=== PATIENT | female | born 1970 | race Caucasian/White ===

== ENCOUNTER 2024-03-15 09:22 | Emergency (ER) | payer BC ==
[~2024-03-15] VITALS: Ht 165.1 cm; Wt 63.0 kg
[2024-03-15] VITALS (13 sets, daily range): BP systolic 120–147; BP diastolic 65–88
[~2024-03-15 09:22] MED LIST: ANUCORT-HC25 MG RE; LORTAB 5/3255 MG PO; MIRALAX3350 NF PO; NO; PREVACID30 M2 PO
[2024-03-15] MEDS ORDERED: SODIUM CHLORIDE 0.9% 1,000 ML IV ONE ×2 (09:35→12:55)
[2024-03-15] MEDS ORDERED: ONDANSETRON HCl 4 MG/2 ML SDV IV ONE (09:35)
[2024-03-15] MEDS ORDERED: ACETAMINOPHEN 500 MG TAB PO ONE (09:40)
[2024-03-15 09:56] LABS: BASO% 0.1 % (0-3); HEMATOCRIT 45.1 % (37.0-47.0); HEMOGLOBIN 14.7 g/dl (12.0-16.0); IMMATURE GRANULOCYTES 0.1 % (0.0-5.0); LYMPH% 4.9 % (15-41); MEAN CELL VOLUME 95.8 fL CALC (80.0-100.0); MEAN CORPUSCULAR HGB 31.2 pG CALC (26.0-32.0); MEAN CORPUSCULAR HGB CONC 32.6 g/dL CAL (32.0-36.0); NEUT# 7.44 thou/uL (2.00-7.15); NEUT% 90.9 % (42-76); RED BLOOD COUNT 4.71 mill/uL (4.20-5.60); RED CELL DISTRI WIDTH 12.7 % (11.5-15.5)
[2024-03-15 10:08] LABS: ALBUMIN 4.6 g/dL (3.2-5.0); BILIRUBIN, TOTAL 0.7 mg/dL (0.02-1.3); CREATININE 0.9 mg/dL (0.5-1.0); TOTAL PROTEIN 7.6 g/dL (6.3-8.2)
[2024-03-15 12:12] LABS: URINE BILIRUBIN - DIPSTICK Negative (NEGATIVE); URINE BLOOD DIPSTICK Small (NEGATIVE); URINE GLUCOSE - DIPSTICK Negative (NEGATIVE); URINE KETONE 15 mg/dL (NEGATIVE); URINE LEUK ESTERASE Negative (NEGATIVE); URINE NITRITE - DIPSTICK Negative (Negative); URINE PH 5.5 (4.5-8.0); URINE PROTEIN - DIPSTICK 100 mg/dL (NEG-TRACE); URINE UROBILINOGEN - DIPSTICK 0.2 E.U./dL (0.2)
[2024-03-15 12:17] LABS: URINE COLOR Yellow
[2024-03-15 12:18] LABS: URINE EPITHELIAL CELLS MODERATE EPI/hpf (0-FEW)
[2024-03-15] MEDS ORDERED: MORPHINE SULFATE 4 MG/ML VIAL IV ONE (12:50)
[2024-03-15] MEDS ORDERED: ZOFRAN4 MG/TAB PO (15:19)
[2024-03-15] MEDS ORDERED: ZPAK PO (15:19)
[2024-03-15] MEDS ORDERED: NAPROXEN500 MG PO (15:20)
== END 2024-03-15 15:40 | disposition home or self-care (01) | DRG 204 ==
LOC: ED 09:22
PROVIDERS: Family Medicine
DX: R05.9 Cough, unspecified (principal); R50.9 Fever, unspecified; R51.9 Headache, unspecified; F17.200 Nicotine dependence, unspecified, uncomplicated; Z20.822 Contact with and (suspected) exposure to COVID-19